=== PATIENT | male | born 1965 | race Caucasian/White ===

== ENCOUNTER 2016-12-07 18:49 | Inpatient (IN) | payer OTHER ==
[~2016-12-07] VITALS: Ht 177.8 cm; Wt 112.5 kg
[2016-12-07] MEDS ORDERED: POTA10CA42 PO (18:57)
[2016-12-07] MEDS ORDERED: FURO-152 PO (18:58)
[2016-12-07] MEDS ORDERED: LOSA25TA12 PO (18:58)
[2016-12-07] MEDS ORDERED: LORAZEPAM 2MG/ML CPJ IV ONE ×2 (21:30→23:00)
[2016-12-07 21:55] LABS: BASOPHILS % 0.9 % (0.0-2.0); EOSINOPHILS % 1.6 % (0.0-5.0); HEMATOCRIT. 42.7 % (42.0-52.0); HEMOGLOBIN. 14.3 g/dL (14.0-18.0); LYMPHOCYTES % 26.6 % (20.0-50.0); MEAN CORPUSCULAR HEMOGLOBIN 28.6 pg (28.0-32.0); MEAN PLATELET VOLUME 6.2 fl (7.4-10.4); NEUTROPHILS % 63.9 % (40.0-76.0); PLATELET 182 x1000/uL (130-400); RED BLOOD CELL COUNT 5.02 mill/uL (4.7-6.1); RED CELL DISTRIBUTION WIDTH 14.3 % (11.6-14.6)
[2016-12-07 21:59] LABS: PROTHROMBIN TIME 10.7 sec (9.4-11.6)
[2016-12-07 22:06] LABS: CARBON DIOXIDE 27 mEq/L (21-32); CHLORIDE 104 mEq/L (98-107)
[2016-12-07 22:09] LABS: TROPONIN I < 0.02 ng/mL (0.00-0.04)
[2016-12-07] MEDS ORDERED: ACETAMINOPHEN 650MG/20.3ML UDC GT PRN (23:30)
[2016-12-07] MEDS ORDERED: HYDROCODONE/ACETAMINOPHEN 10/325MG TABLET PO PRN (23:30)
[2016-12-07] MEDS ORDERED: IPRATROPIUM/ALBUTEROL 0.5-3(2.5)MG/3ML NEB INH PRN (23:30)
[2016-12-07] MEDS ORDERED: MAGNESIUM/ALUMINUM HYDROXIDE/SIMETHICONE 30ML UDC PO PRN (23:30)
[2016-12-07] MEDS ORDERED: GUAIFENESIN 200MG/10ML SUGAR FREE UDC PO PRN (23:30)
[2016-12-07] MEDS ORDERED: DOCUSATE SODIUM 100MG CAPSULE PO PRN (23:30)
[2016-12-07] MEDS ORDERED: ACETAMINOPHEN 650MG SUPP PR PRN (23:30)
[2016-12-07] MEDS ORDERED: ACETAMINOPHEN 325MG TABLET PO PRN (23:30)
[2016-12-07] MEDS ORDERED: DIPHENHYDRAMINE 50MG/ML VIAL IV PRN (23:30)
[2016-12-07] MEDS ORDERED: NA PHOS,M-B/NA PHOS,DI-BA ENEMA 118ML PR PRN (23:30)
[2016-12-08] VITALS (7 sets, daily range): BP systolic 106–188; BP diastolic 55–109
[2016-12-08] MEDS: CLONIDINE 0.1MG TABLET PO PRN ×3 (02:00→20:49)
[2016-12-08] MEDS: SODIUM CHLORIDE 0.45% 1,000 ML IV SCH ×2 (02:01→20:56)
[2016-12-08 06:34] LABS: BASOPHILS % 0.9 % (0.0-2.0); EOSINOPHILS % 2.6 % (0.0-5.0); HEMATOCRIT. 37.5 % (42.0-52.0); HEMOGLOBIN. 12.8 g/dL (14.0-18.0); MEAN CORPUSCULAR HEMOGLOBIN 28.9 pg (28.0-32.0); MEAN CORPUSCULAR VOLUME 84.4 fL (80.0-94.0); MEAN PLATELET VOLUME 6.1 fl (7.4-10.4); MONOCYTES % 9.4 % (2.0-8.0); NEUTROPHILS % 60.1 % (40.0-76.0); PLATELET 155 x1000/uL (130-400); RED BLOOD CELL COUNT 4.44 mill/uL (4.7-6.1); RED CELL DISTRIBUTION WIDTH 14.1 % (11.6-14.6)
[2016-12-08 07:32] LABS: CHLORIDE 105 mEq/L (98-107)
[2016-12-08 07:42] LABS: CARBON DIOXIDE 27 mEq/L (21-32); CREATINE KINASE 352 IU/L (39-308); HDL CHOLESTEROL 57 mg/dL (40-59); LDL CHOLESTEROL 38 mg/dL (5-100); TROPONIN I < 0.02 ng/mL (0.00-0.04)
[2016-12-08] MEDS ORDERED: SIMV40TA5 PO (07:49)
[2016-12-08] MEDS ORDERED: ASPI-986 PO (07:49)
[2016-12-08] MEDS ORDERED: TRAZ-129 PO (07:50)
[2016-12-08] MEDS ORDERED: REGADENOSON 0.4 MG/5 ML IV NR (09:30)
[2016-12-08 10:22] LABS: T4 FREE 0.73 ng/dL (0.76-1.46)
[2016-12-08] MEDS ORDERED: PNEUMOCOCCAL 23-VAL P-SAC VAC 0.5 ML IM ONE (11:00)
[2016-12-08] MEDS ORDERED: REGADENOSON 0.4 MG/5 ML IV ONE (11:21)
[2016-12-08] MEDS ORDERED: CHOL500010 PO (11:47)
[2016-12-08] MEDS ORDERED: CHOL100046 PO (11:47)
[2016-12-08] MEDS ORDERED: LOSA100T14 PO (11:47)
[2016-12-08] MEDS ORDERED: CARV25TA47 PO (11:47)
[2016-12-08] MEDS ORDERED: LORAZEPAM 2MG/ML CPJ IV NR (12:00)
[2016-12-08] MEDS: ASPIRIN 81MG TABLET PO SCH (12:13)
[2016-12-08] MEDS: CLOPIDOGREL 75MG TABLET PO SCH (12:13)
[2016-12-08] MEDS: AMLODIPINE 10MG TABLET PO SCH (12:14)
[2016-12-08] MEDS: FOLIC ACID 1MG TABLET PO SCH (12:14)
[2016-12-08] MEDS: THIAMINE HCL 100MG TABLET PO SCH (12:14)
[2016-12-08 12:50] LABS: CLARITY URINE CLEAR (CLEAR); COLOR URINE YELLOW (YELLOW); GLUCOSE URINE NEGATIVE (NEGATIVE); KETONES URINE NEGATIVE (NEGATIVE); LEUKOCYTE ESTERASE URINE NEGATIVE (NEGATIVE); NITRITE URINE NEGATIVE (NEGATIVE); OCCULT BLOOD URINE NEGATIVE (NEGATIVE); PROTEIN URINE NEGATIVE (NEGATIVE); SPECIFIC GRAVITY URINE 1.022 (1.005-1.030); UROBILINOGEN URINE 0.2 E.U./dL (0.2-1.0)
[2016-12-08 13:00] LABS: *AMPHETAMINES SCREEN URINE NEGATIVE (NEGATIVE); *BARBITURATES SCREEN URINE NEGATIVE (NEGATIVE); *BENZODIAZEPINES SCREEN URINE NEGATIVE (NEGATIVE); *COCAINE SCREEN URINE NEGATIVE (NEGATIVE); CANNABINOID URINE SCREEN NEGATIVE (NEGATIVE); METHADONE URINE SCREEN NEGATIVE (NEGATIVE); OPIATES URINE SCREEN NEGATIVE (NEGATIVE); PHENCYCLIDINE URINE SCREEN NEGATIVE (NEGATIVE)
[2016-12-08] MEDS: CHLORDIAZEPOXIDE 25MG CAPSULE PO SCH ×2 (14:55→20:49)
[2016-12-08] MEDS: LORAZEPAM 2MG/ML CPJ IV PRN ×2 (17:20→22:23)
[2016-12-08 17:29] LABS: CREATINE KINASE 327 IU/L (39-308); CREATINE KINASE MB FRACTION 2.3 ng/mL (0.5-3.6); TROPONIN I < 0.02 ng/mL (0.00-0.04)
[2016-12-08] MEDS: HYDROCODONE/ACETAMINOPHEN 5/325MG TABLET PO PRN (22:32)
[2016-12-09] VITALS (7 sets, daily range): BP systolic 130–159; BP diastolic 88–106
[2016-12-09] MEDS: HYDROCODONE/ACETAMINOPHEN 5/325MG TABLET PO PRN ×2 (02:15→06:00)
[2016-12-09] MEDS: LORAZEPAM 2MG/ML CPJ IV PRN ×4 (02:27→19:41)
[2016-12-09] MEDS: CHLORDIAZEPOXIDE 25MG CAPSULE PO SCH ×3 (05:21→21:00)
[2016-12-09] MEDS: CLONIDINE 0.1MG TABLET PO PRN (05:21)
[2016-12-09] MEDS: SODIUM CHLORIDE 0.45% 1,000 ML IV SCH (05:22)
[2016-12-09] MEDS ORDERED: IOHEXOL-350 100 ML BOTTLE ONE (09:37)
[2016-12-09] MEDS: FOLIC ACID 1MG TABLET PO SCH (10:13)
[2016-12-09] MEDS: ASPIRIN 81MG TABLET PO SCH (10:13)
[2016-12-09] MEDS: CLOPIDOGREL 75MG TABLET PO SCH (10:14)
[2016-12-09] MEDS: AMLODIPINE 10MG TABLET PO SCH (10:14)
[2016-12-09] MEDS: THIAMINE HCL 100MG TABLET PO SCH (10:14)
[2016-12-09] MEDS ORDERED: ONDANSETRON HCL 4MG/2ML VIAL IV NR (11:53)
[2016-12-09] MEDS ORDERED: ONDANSETRON HCL 4MG/2ML VIAL IV PRN (12:00)
[2016-12-09] MEDS ORDERED: APIXABAN 5 MG TABLET PO SCH (15:15)
[2016-12-09] MEDS ORDERED: LOSARTAN POTASSIUM 100 MG TABLET PO SCH (15:30)
[2016-12-09] MEDS: LOSARTAN POTASSIUM 25 MG TABLET PO SCH (16:34)
[2016-12-09] MEDS: CARVEDILOL 25MG TABLET PO SCH ×2 (16:34→21:00)
[2016-12-09] MEDS: APIXABAN 5 MG TABLET PO SCH (16:35)
[2016-12-09] MEDS: FUROSEMIDE 20MG TABLET PO SCH (16:35)
[2016-12-09] MEDS ORDERED: TRAZODONE HCL 50MG TABLET PO SCH (21:00)
[2016-12-09 21:25] LABS: BASOPHILS % 0.7 % (0.0-2.0); EOSINOPHILS % 6.1 % (0.0-5.0); HEMATOCRIT. 36.8 % (42.0-52.0); HEMOGLOBIN. 12.6 g/dL (14.0-18.0); LYMPHOCYTES % 16.6 % (20.0-50.0); MEAN CORPUSCULAR HEMOGLOBIN 29.1 pg (28.0-32.0); MEAN PLATELET VOLUME 6.2 fl (7.4-10.4); MONOCYTES % 5.9 % (2.0-8.0); NEUTROPHILS % 70.7 % (40.0-76.0); PLATELET 136 x1000/uL (130-400); RED BLOOD CELL COUNT 4.34 mill/uL (4.7-6.1)
[2016-12-09 21:39] LABS: CARBON DIOXIDE 32 mEq/L (21-32); CHLORIDE 99 mEq/L (98-107)
[2016-12-09] MEDS ORDERED: POTASSIUM CHLORIDE 20MEQ TABLET SR PO NR (22:45)
[2016-12-10] MEDS ORDERED: CHLORDIAZEPOXIDE 25MG CAPSULE PO NR (01:00)
[2016-12-10] MEDS ORDERED: LORAZEPAM 2MG/ML CPJ IV NR (01:00)
[2016-12-10 04:00] VITALS: BP 135/84
[2016-12-10] MEDS ORDERED: CHLORDIAZEPOXIDE 25MG CAPSULE PO SCH (06:00)
[2016-12-10 08:00] VITALS: BP 148/96
[2016-12-10] MEDS: THIAMINE HCL 100MG TABLET PO SCH (08:05)
[2016-12-10] MEDS: FOLIC ACID 1MG TABLET PO SCH (08:06)
[2016-12-10] MEDS: FUROSEMIDE 20MG TABLET PO SCH (08:06)
[2016-12-10] MEDS: LOSARTAN POTASSIUM 25 MG TABLET PO SCH (08:06)
[2016-12-10] MEDS: CARVEDILOL 25MG TABLET PO SCH (08:11)
[2016-12-10] MEDS: APIXABAN 5 MG TABLET PO SCH (08:13)
[2016-12-10] MEDS: LORAZEPAM 2MG/ML CPJ IV PRN (08:24)
[2016-12-10] MEDS ORDERED: CLOPIDOGREL 75MG TABLET PO SCH (09:00)
[2016-12-10] MEDS ORDERED: ASPIRIN 81MG TABLET PO SCH (09:00)
[2016-12-10] MEDS ORDERED: ASPIRIN 325MG TABLET PO SCH (09:00)
[2016-12-10 12:00] VITALS: BP 135/71
[2016-12-10 14:12] VITALS: BP 144/89
[2016-12-10 14:13] VITALS: BP 144/89
[2016-12-16] MEDS ORDERED: APIXABAN 5 MG TABLET PO SCH (17:00)
== END 2016-12-10 15:05 | disposition home or self-care (01) | DRG 176 ==
LOC: ER 19:00 → 7WST 23:08 → EDBEDREQTM 23:10 → EDBEDREQ 23:10
PROVIDERS: ADMIT Family Medicine; ATTEND Family Medicine
PROC: 02HV33Z Insertion of Infusion Device into Superior Vena Cava, Percutaneous Approach (ICD-10-PCS; principal; 2016-12-09)
PROC: B5181ZA Fluoroscopy of Superior Vena Cava using Low Osmolar Contrast, Guidance (ICD-10-PCS; 2016-12-09)
PROC: B548ZZA Ultrasonography of Superior Vena Cava, Guidance (ICD-10-PCS; 2016-12-09)
DX: I26.99 Other pulmonary embolism without acute cor pulmonale (principal); I48.91 Unspecified atrial fibrillation; I25.10 Atherosclerotic heart disease of native coronary artery without angina pectoris; J45.909 Unspecified asthma, uncomplicated; E66.9 Obesity, unspecified; E78.5 Hyperlipidemia, unspecified; I10 Essential (primary) hypertension; F10.10 Alcohol abuse, uncomplicated; Z95.5 Presence of coronary angioplasty implant and graft; E11.9 Type 2 diabetes mellitus without complications; Z95.1 Presence of aortocoronary bypass graft; Z88.8 Allergy status to other drugs, medicaments and biological substances; Z68.35 Body mass index [BMI] 35.0-35.9, adult
CPT/HCPCS: 36415; 36569; 71010; 71275; 76700; 76937; 77001; 80053; 80061; 80305; 81003; 82550; 82553; 83036; 83880; 84439; 84443; 84484; 85025; 85379; 85610; 90732; 93005; 93306; 93880; 93970; 96374; 99285; C1725; G0482; J1200; J2060; J2405; J2785; J7030; J7050; Q9967